=== PATIENT | male | born 1975 | race Two or more races ===

== ENCOUNTER 2024-04-09 11:55 | Emergency (ER) | payer OTHER ==
[~2024-04-09] VITALS: Ht 175.3 cm; Wt 86.2 kg
[~2024-04-09 11:55] MED LIST: ULTRAM50 MG
[2024-04-09] MEDS ORDERED: ORPHENADRINE CITRATE 30 MG/ML AMPUL IM STA (13:48)
[2024-04-09] MEDS ORDERED: ORPHENADRINE CITRATE 30 MG/ML AMPUL ONE (13:54)
[2024-04-09] MEDS ORDERED: KETOROLAC TROMETHAMINE 60 MG VIAL IM ONE ×2 (13:55→14:00)
[2024-04-09 14:39] LABS: HEMATOCRIT 47.2 % (39.0-48.0); HEMOGLOBIN 16.3 g/dL (13-16.00); MEAN CORPUSCULAR HEMOGLOBIN 28.3 pg (27.00-32.0); MEAN CORPUSCULAR HGB CONC 34.5 g/dl (32.0-36.0); PLATELET COUNT 173 K/uL (150-450); RED BLOOD COUNT 5.75 M/uL (4.00-6.00); RED CELL DISTRIBUTION WIDTH 13.2 % (11.5-14.5)
[2024-04-09 14:53] LABS: ALBUMIN 3.7 gm/dL (3.4-5.0); ALKALINE PHOSPHATASE 64 U/L (50-136); ALT/SGPT 26 U/L (12-78); ANION GAP 6 (10.0-20.0); AST/SGOT 17 U/L (15-37); BILIRUBIN TOTAL 0.38 mg/dL (0.3-1.2); BILIRUBIN,CONJUGATED < 0.10 mg/dL (0.0-0.2); BILIRUBIN,UNCONJUGATED 0.28 mg/dL (0.0-0.6); BLOOD UREA NITROGEN 12 mg/dL (7-18); BUN CREA RATIO 11 (7.0-25.0); CALCIUM 9.1 mg/dL (8.5-10.1); CARBON DIOXIDE 33 mEq/L (21-32); CHLORIDE 106 mmol/L (98-107); CREATININE SERUM 1.07 mg/dL (0.70-1.30); GFR 73.76; GLUCOSE FASTING 99 mg/dL (65-100); OSMOLALITY SERUM 281 MOSM/KG (275-295); POTASSIUM 3.58 mEq/L (3.5-5.1); SODIUM 141 mmol/L (136-145); TOTAL PROTEIN 7.3 gm/dL (6.4-8.2)
[2024-04-09 14:56] LABS: C-REACTIVE PROTEIN < 0.29 MG/DL (0.00-0.29)
[2024-04-09 15:01] LABS: PH,URINE 6.5 (5.0-8.0); URINE APPEARANCE Clear; URINE BILIRRUBIN Negative (NEGATIVE); URINE BLOOD Negative; URINE COLOR Yellow; URINE GLUCOSE Negative (NEGATIVE); URINE KETONE Trace (NEGATIVE); URINE LEUKOCYTE Negative; URINE NITRATE Negative; URINE PROTEIN Negative (NEGATIVE); URINE UROBILINOGEN 0.2 E.U./dl
[2024-04-09 15:05] LABS: URINE RBC 4.2 uL (0.0-20.8)
[2024-04-09 15:09] LABS: ERYTHROCYTE SEDIMENTATION RATE 4 mm/hr
[2024-04-09 15:45] LABS: URINE BACTERIA 3.6 uL (0.0-1933); URINE EPITHELIAL CELLS 0.3 uL (0.0-38.8); URINE WBC 1.5 uL (0.0-23.2)
== END 2024-04-09 16:24 | disposition home or self-care (01) ==
LOC: ER 11:58
PROVIDERS: General Practice
DX: R20.2 Paresthesia of skin (principal)

== ENCOUNTER 2025-01-03 08:27 | Outpatient (CLI) | payer OTHER | END 2025-01-03 08:31 | disposition home or self-care (01) | LOC: MRI 08:27 | DX: M16.12 Unilateral primary osteoarthritis, left hip (principal); M19.90 Unspecified osteoarthritis, unspecified site; M25.552 Pain in left hip; M46.1 Sacroiliitis, not elsewhere classified; M87.852 Other osteonecrosis, left femur | CPT/HCPCS: 73721 ==